=== PATIENT | female | born 1950 | race Hispanic/Latino ===

== ENCOUNTER 2018-08-24 14:16 | Emergency (ER) | payer BC, MEDICARE ==
[2018-08-24] MEDS ORDERED: ZOFRAN ONE (14:28)
[2018-08-24] MEDS ORDERED: PEPCID IV ONE (15:05)
[2018-08-24] MEDS ORDERED: SOLU-Medrol IV ONE (15:05)
--- NOTE | 2018-08-24 15:09 | Emergency Department Report ---
HPI - General Chief Complaint: Allergic Reaction Time Seen by Provider: 08/24/18 14:49 - HPI HPI: Room 3 The patient is a 68-year-old female presenting with chief complaint of allergic reaction. The patient states she was driving her car to work she began to feel as though her nose and sinuses were "filling up." The patient arrived at work and states while she was walking into the building the symptoms worsen and she felt as though her throat was closing. The patient states she self administered an EpiPen and had some improvement. Patient states her breathing feels better but she feels a little "shaky." Patient states she had itching of bilateral upper extremities and her chest and face were "flushed." Location: [See above] Duration: [See above] Quality: [See above] Severity: [See above] Modifying factors: [see above] Context: [see above] Mode of transportation: [not driving] ED Past Medical Hx - Past Medical History Previous Medical History?: Yes Hx Diabetes: Yes Hx Asthma: Yes Additional medical history: left kidney ca 2017 - Surgical History Past Surgical History?: Yes Additional Surgical History: left kidney removal - Family History Family history: no significant - Social History Smoking Status: Former Smoker (none 35 years) Substance Use Type: Alcohol (occasional) - Medications Home Medications: Home Medications Medication Instructions Recorded Confirmed Last Taken Type EPINEPHrine [Epipen 2-Jameson] 0.3 mg IM ONCE PRN #0.6 ml 08/24/18 Unknown Rx Famotidine [Pepcid] 20 mg PO BID #6 tablet 08/24/18 Unknown Rx Prednisone [predniSONE 10 mg 10 mg PO .TAPER #1 tab.ds.pk 08/24/18 Unknown Rx (6-Day Pack, 21 Tabs)] diphenhydrAMINE [Benadryl CAP] 50 mg PO Q6HR #24 capsule 08/24/18 Unknown Rx ED Review of Systems ROS: Stated complaint: RESPIRATORY DISTRESS Other details as noted in HPI Constitutional: no symptoms reported Eyes: denies: eye pain ENT: congestion Respiratory: shortness of breath Cardiovascular: denies: chest pain Endocrine: no symptoms reported Gastrointestinal: denies: abdominal pain Genitourinary: denies: dysuria Musculoskeletal: denies: back pain Skin: change in color, pruritus Neurological: denies: headache Physical Exam - Physical Exam Vital Signs: Vital Signs 08/24/18 08/24/18 14:25 14:30 Temperature 97.6 F Pulse Rate 102 H Respiratory 12 12 Rate Blood Pressure 151/68 Blood Pressure 151/68 [Right] O2 Sat by Pulse 99 99 Oximetry Physical Exam: GENERAL: The patient is well-developed well-nourished female lying on stretcher and appeared to be in acute distress. [] HEENT: Normocephalic. Atraumatic. Extraocular motions are intact. Patient has moist mucous membranes. Oropharynx clear. Uvula midline NECK: Supple. No stridor CHEST/LUNGS: Clear to auscultation. There is no respiratory distress noted. HEART/CARDIOVASCULAR: Regular. There is no tachycardia. There is no gallop rub or murmur. ABDOMEN: Abdomen is soft, nontender. Patient has normal bowel sounds. There is no abdominal distention. SKIN: There is no rash. There is no edema. There is no diaphoresis. NEURO: The patient is awake, alert, and oriented. The patient is cooperative. The patient has normal speech MUSCULOSKELETAL: There is no evidence of acute injury. ED Course Vital Signs 08/24/18 08/24/18 14:25 14:30 Temperature 97.6 F Pulse Rate 102 H Respiratory 12 12 Rate Blood Pressure 151/68 Blood Pressure 151/68 [Right] O2 Sat by Pulse 99 99 Oximetry ED Medical Decision Making - Radiology Data Radiology results: report reviewed (lateral soft tissue neck x-ray), image reviewed (lateral soft tissue neck x-ray) interpreted by me: Lateral soft tissue neck x-ray-no prevertebral swelling. Airway patent [facility] [address] [place] [address] XRay Report Signed Patient: JULIETTE LOYA MR#: [id number] : 9 Acct:[id number] Age/Sex: 68 / F ADM Date: 08/24/18 Loc: ED Attending Dr: Ordering Physician: NATALIE BOWLING MD Date of Service: 08/24/18 Procedure(s): XR neck soft tissue Accession Number(s): [id number] cc: NATALIE BOWLING MD Fluoro Time In Minutes: PROCEDURE: XR NECK SOFT TISSUE HISTORY: allergic reaction, felt like throat was closing FINDINGS: AP and lateral views of the neck soft tissues were acquired. There is a normal epiglottis. The prevertebral soft tissues are within normal limits. The airway appears widely pat ent. There is anterior endplate remodeling at C3 C4, C4 C5, C5 C6 and C6-C7. IMPRESSION: The airway appears widely patent This document is electronically signed by Cliff Carcamo MD., Aug 24 2018 05:10:44 PM ET Transcribed By: JASON Dictated By: CLIFF CARCAMO MD Electronically Authenticated By: CLIFF CARCAMO MD Signed Date/Time: 08/24/181711 DD/ 33 TD/TT: 08/24/181533 - Differential Diagnosis allergic reaction Critical care attestation.: If time is entered above; I have spent that time in minutes in the direct care of this critically ill patient, excluding procedure time. ED Disposition Clinical Impression: Acute allergic reaction Disposition: DC-01 TO HOME OR SELFCARE Is pt being admited?: No Does the pt Need Aspirin: No Condition: Stable Instructions: Anaphylaxis (ED) Additional Instructions: Return to the emergency department immediately should you develop worsening symptoms, fever, inability to tolerate food or liquid or any other concerns. Prescriptions: diphenhydrAMINE [Benadryl CAP] 50 mg PO Q6HR #24 capsule EPINEPHrine [Epipen 2-Jameson] 0.3 mg IM ONCE PRN #0.6 ml PRN Reason: Shortness Of Breath Famotidine [Pepcid] 20 mg PO BID #6 tablet Prednisone [predniSONE 10 mg (6-Day Pack, 21 Tabs)] 10 mg PO .TAPER #1 tab.[id number] Referrals: PRIMARY CAREMD [Primary Care Provider] - 3-5 Days Time of Disposition: 17:22
[2018-08-24] MEDS ORDERED: BENADRYL PO ONE (16:15)
--- NOTE | 2018-08-24 17:12 | XRay Report ---
PROCEDURE: XR NECK SOFT TISSUE HISTORY: allergic reaction, felt like throat was closing FINDINGS: AP and lateral views of the neck soft tissues were acquired. There is a normal epiglottis. The prevertebral soft tissues are within normal limits. The airway appears widely patent. There is an terior endplate remodeling at C3 C4, C4 C5, C5 C6 and C6-C7. IMPRESSION: The airway appears widely patent This document is electronically signed by Cliff Mariee MD., Aug 24 2018 05:10:44 PM ET
[2018-08-24 17:33] VITALS: BP 125/54
== END 2018-08-24 17:47 | disposition home or self-care (01) ==
LOC: ED 14:16
DX: T78.40XA Allergy, unspecified, initial encounter (principal); E11.9 Type 2 diabetes mellitus without complications; J45.909 Unspecified asthma, uncomplicated; Z87.891 Personal history of nicotine dependence; Z88.1 Allergy status to other antibiotic agents; Z88.0 Allergy status to penicillin; Z88.8 Allergy status to other drugs, medicaments and biological substances; X58.XXXA Exposure to other specified factors, initial encounter
CPT/HCPCS: 70360; 82962; 96374; 96375; 99284; J2930; J2405